=== PATIENT | male | born 1985 | race Caucasian/White ===

== ENCOUNTER 2018-12-18 11:32 | Observation (INO) | payer BC ==
[2018-12-18] MEDS ORDERED: HYDROMORPHONE HCL 1 MG/ML INJ IV PRN (11:55)
[2018-12-18] MEDS ORDERED: LOPERAMIDE HCL 2 MG CAPSULE PO PRN (12:00)
[2018-12-18] MEDS ORDERED: NACHLORIDE 0.45% 1,000 ML IV SCH (12:00)
[2018-12-18] MEDS ORDERED: ONDANSETRON 4 MG (ODT) TAB PO PRN (12:00)
[2018-12-18] MEDS ORDERED: ONDANSETRON 4 MG/2 ML VIAL IV PRN (12:00)
[2018-12-18] MEDS ORDERED: DIPHENHYDRAMINE 25 MG TAB/CAP PO PRN (12:00)
[2018-12-18] MEDS ORDERED: ACETAMINOPHEN 325 MG TABLET PO PRN (12:00)
[2018-12-18] MEDS ORDERED: CEFTRIAXONE/SWI 1gm 1 GM/10 ML SYR IV SCH (12:00)
[2018-12-18] MEDS ORDERED: POLYETHYL GLY 3350 17 GM/DOSE PO PRN (12:00)
[2018-12-18] MEDS: PANTOPRAZOLE 40 MG INJ IV SCH (12:21)
[2018-12-18] MEDS: SODIUM CHLORIDE 0.9% 10ML INJ IV SCH (12:22)
[2018-12-18 12:25] VITALS: BMI 29.3
[2018-12-18 12:48] LABS: Absolute Lymphocytes (CBC) 1.2 K/uL (0.7-4.9); Basophils % 1.2 % (0-1.3); Hematocrit 46.5 % (39.6-49.0); Lymphocytes % 35.6 % (15.3-44.8); RBC Red Blood Cell Count 5.35 M/uL (4.33-5.43)
[2018-12-18 12:52] LABS: Protime INR 1.05
[2018-12-18 13:27] LABS: ALT/SGPT 45 U/L (12-78); AST/SGOT 17 U/L (15-37); Albumin 3.9 g/dL (3.4-5.0); Alkaline Phosphatase 52 U/L (45-117); Amylase Level 57 U/L (25-115); BUN Blood Urea Nitrogen 8 mg/dL (7-18); Bicarbonate 28 mmol/L (21-32); Bilirubin Direct 0.2 mg/dL (0-0.2); Bilirubin Total 0.9 mg/dL (0.2-1.0); Glucose Level 81 mg/dL (74-106); Lipase 65 U/L (73-393); Magnesium 2.4 mg/dL (1.8-2.4); Potassium 4.3 mmol/L (3.5-5.1); Protein, Total 7.1 g/dL (6.4-8.2); Sodium Level 144 mmol/L (136-145)
--- NOTE | 2018-12-18 14:34 | RAD REPORT ---
EXAM DESCRIPTION: Trang Sanchez (2 Views)12/18/2018 2:27 pm CLINICAL HISTORY: Abdominal pain COMPARISON: None FINDINGS: The lungs appear clear of acute infiltrate. The heart is normal size IMPRESSION: No acute abnormalities displayed
[2018-12-18 14:41] LABS: Urine Appearance CLEAR; Urine Bilirubin NEGATIVE (NEG); Urine Blood NEGATIVE (NEG); Urine Color YELLOW; Urine Glucose NEGATIVE (NEG); Urine Protein NEGATIVE (NEG); Urine Urobilinogen 0.2 mg/dL (0.2-1.0)
--- NOTE | 2018-12-18 14:41 | RAD REPORT ---
EXAM DESCRIPTION: CT - Abdomen Pelvis W Contrast - 12/18/2018 2:27 pm CLINICAL HISTORY: Abdominal pain. COMPARISON: None. TECHNIQUE: Computed axial tomography of the abdomen and pelvis was obtained. 100 cc Isovue-300 is ad ministered intravenously. Oral contrast was given. All CT scans are performed using dose optimization technique as appropriate and may include automated exposure control or mA/KV adjustment according to patient size. FINDINGS: The liver, spleen, pancreas, adrenals and kidneys appear unremarkable. The appendix is normal caliber. There is no evidence of diverticulitis A ventral hernia with a neck of 12 millimeters is present above the level of the umbilicus. There is mild stranding within the herniated fat. IMPRESSION: ventral hernia with a neck of 12 millimeters is present above the level of the umbilicus . There is mild stranding within the herniated fat. This may indicate inflammation.
[2018-12-18 14:51] LABS: Urine Microscopic Reflex NO UMIC
[2018-12-18] MEDS ORDERED: CEFAZOLIN/NS 1gm 1 GM/50 ML BAG IVPB SCH (19:00)
[2018-12-18] MEDS: NACHLORIDE 0.45% 1,000 ML IV SCH (19:00)
[2018-12-19 05:41] LABS: Absolute Lymphocytes (CBC) 2.3 K/uL (0.7-4.9); Basophils % 0.9 % (0-1.3); Hematocrit 43.9 % (39.6-49.0); Lymphocytes % 43.1 % (15.3-44.8); MPV 8.9 fL (7.6-11.3); RBC Red Blood Cell Count 5.07 M/uL (4.33-5.43)
[2018-12-19 05:59] LABS: Magnesium 2.4 mg/dL (1.8-2.4); Potassium 4.2 mmol/L (3.5-5.1)
[2018-12-19] MEDS: NACHLORIDE 0.45% 1,000 ML IV SCH ×2 (06:13→08:20)
[2018-12-19] MEDS ORDERED: CEFAZOLIN/SWI 1gm 1 GM/10 ML SYR ONE (07:07)
[2018-12-19] MEDS ORDERED: Ringers Lactate 1,000 ML IV ONE (07:23)
[2018-12-19] MEDS ORDERED: PROPOFOL 200 MG/20 ML VIAL IV ONE (07:54)
[2018-12-19] MEDS ORDERED: FENTANYL CITR 100 MCG/2 ML ONE (07:55)
[2018-12-19] MEDS ORDERED: ROCURONIUM 50 MG/5 ML VIAL IV ONE (07:55)
--- NOTE | 2018-12-19 08:11 | PREOPCON ---
Date of Consultation: 12/19/2018 Chief Complaint: Abdominal pain. History Of Present Illness: Patient is a 33-year-old gentleman who has had this mass in the epigastr ium above the umbilicus for the last 6 months, it has been bothering him off and on, however, yesterd ay it became severe, he went to Dr. Juan's office. He was admitted and a CAT scan was done, and he was found to have an incarcerated ventral hernia and he was consulted. He is awake, alert, complaini ng of pain above the belly button. No nausea or vomiting. No diarrhea or constipation. No blood in his stool. No dysuria or hematuria. No sore throat, runny nose, cough, headaches, or dizziness. N o chest pain. Review of Systems: Otherwise unremarkable. Past Medical History: Negative. Past Surgical History: Lymph node excision from the left neck. Allergies: NONE. Social History: He denies smoking. Drinks occasionally. Family History: CHF. Physical Examination: Vital Signs: Stable afebrile. General: Awake, alert, and oriented x3. Head and Neck: Cranial nerves 2 through 12 are grossly within normal limits. No neck masses. No JV D. Throat clear. Neck is supple. Chest: Clear. Heart: S1 and S2. Abdomen: Soft, nondistended. Positive bowel sounds. Tenderness above the umbilicus with the mass a ssociated approximately 2 x 3 cm, tender. Extremities: Adequately perfused. Nontender. Neuro: Nonfocal. Diagnostic Data: CT of the abdomen and pelvis shows a 12 mm neck above the umbilicus with inflamed f at in the sac. Laboratory Data: Reviewed. Essentially within normal limits. Assessment: Incarcerated ventral hernia. Plan: Repair. Patient understands the risks, benefits, and alternatives and he agrees to the proced ure. We will utilize mesh. /MODL Voice ID: [id number] Report ID: [id number]
[2018-12-19] MEDS ORDERED: KETOROLAC 30 MG/ML INJ ONE (08:13)
[2018-12-19] MEDS ORDERED: ONDANSETRON 4 MG/2 ML VIAL ONE (08:13)
[2018-12-19] MEDS ORDERED: dexAMETHasone 10 MG/ML VIAL ONE (08:13)
[2018-12-19] MEDS ORDERED: NEOSTIGMINE 1 MG/ML -10 ML VIAL ONE (08:19)
[2018-12-19] MEDS ORDERED: GLYCOPYRROLATE 0.2 MG/ML SYR ONE ×2 (08:19→08:29)
--- NOTE | 2018-12-19 08:32 | P.OP ---
Preoperative diagnosis: Incarcerated Ventral Hernia Postoperative diagnosis: same Primary procedure: Repair Incarcerated Ventral Hernia Anesthesia: General Estimated blood loss: min Specimen: Hernia sac and contents Findings: as above Complications: None Transferred to: Recovery Room Condition: Good
[2018-12-19] MEDS ORDERED: CODEINE 30MG/APAP 300MG TAB PO PRN (08:42)
[2018-12-19] MEDS: HYDROMORPHONE HCL 2 MG/ML inj ONE ×4 (08:50→09:05)
[2018-12-19 09:07] VITALS: BP 110/72; TEMP 97.5; O2SAT 97
--- NOTE | 2018-12-19 09:10 | EKG ---
Test Date: 2018-12-18 Test Time: 13:53:15 [place]: ANA MEASUREMENT RESULTS: Intervals: Rate: 57 FL: 180 QRSD: 92 QT: 404 QTc: 393 [place]: P: 45 FL: 180 QRS: 39 T: 34 INTERPRETIVE STATEMENTS: Sinus bradycardia Otherwise normal ECG No previous ECG available for comparison Electronically Signed On 12-19-18 09:08:07 CDT by Justyn Maguire
[2018-12-19] MEDS: PANTOPRAZOLE 40 MG INJ IV SCH (09:53)
[2018-12-19] MEDS: SODIUM CHLORIDE 0.9% 10ML INJ IV SCH (09:54)
--- NOTE | 2018-12-19 10:11 | OP ---
Date of Procedure: 12/19/2018 Surgeon: Renny Gottlieb MD Preoperative Diagnosis: Incarcerated ventral hernia. Postoperative Diagnosis: Incarcerated ventral hernia. Procedure: Repair of incarcerated ventral hernia. Estimated Blood Loss: Minimal. Specimen: Hernia sac and contents. Findings: As above. Anesthesia: General. Complications: None. Disposition: Patient tolerated the procedure in stable condition and taken to recovery in good gener al condition. Procedure In Detail: The patient was brought to the OR and placed in supine position. General anest hesia was begun. Patient was prepped and draped in usual sterile fashion. Marcaine 0.5% was infiltr ated locally for postop pain control. Then 15 blade was used to make a 4 cm incision above the umbil icus approximately an inch above it. Subcutaneous tissue was divided. Hernia sac and contents ident ified, excised. Approximately a 2 cm defect remained. A Ventralex mesh placed in the defect and the n a #1 PDS [id number] suture was used to close the fascial defect. Wound irrigated. Bleeding c ontrolled with cautery. Then 3-0 chromic was used to approximate subcutaneous tissue and loni use d to close skin. Sterile dressing was applied. The patient was awakened and taken to recovery in good general condition. /MODL Voice ID: [id number] Report ID: [id number]
--- NOTE | 2018-12-19 10:43 | P.DS ---
Admission Date: 12/18/18 Discharge Date: 12/19/18 Disposition: ROUTINE DISCHARGE Discharge Condition: GOOD Hospital Course: [facility]PC[facility] IS DOING GREAT SP SURGERY. HE IS STABLE TO GO HOME. INCARCERATED ABDOMEN WALL HERNIA WAS REPAIRED BY DR. GOTTLIEB. Vital Signs/Physical Exam: Temp Pulse Resp BP Pulse Ox 97.5 F 58 16 110/72 98 12/19/18 09:06 12/19/18 09:06 12/19/18 09:06 12/19/18 09:06 12/19/18 04:00 General: Alert, In no apparent distress HEENT: Atraumatic, PERRLA, EOMI Neck: Supple, JVD not distended Respiratory: Clear to auscultation bilaterally, Normal air movement Cardiovascular: Regular rate/rhythm, Normal S1 S2 Gastrointestinal: Normal bowel sounds, Tenderness (POST OP.) Musculoskeletal: No tenderness Integumentary: No rashes Neurological: Normal speech, Normal tone, Normal affect Lymphatics: No axilla or inguinal lymphadenopathy Laboratory Data at Discharge: WBC 5.3 K/uL (4.3-10.9) D 12/19/18 05:07 Hgb 14.6 g/dL (13.6-17.9) 12/19/18 05:07 Hct 43.9 % (39.6-49.0) 12/19/18 05:07 Plt Count 238 K/uL (152-406) 12/19/18 05:07 PT 12.4 SECONDS (9.5-12.5) 12/18/18 12:18 INR 1.05 12/18/18 12:18 APTT 30.6 SECONDS (24.3-36.9) 12/18/18 12:18 Sodium 144 mmol/L (136-145) 12/19/18 05:07 Potassium 4.2 mmol/L (3.5-5.1) 12/19/18 05:07 BUN 9 mg/dL (7-18) 12/19/18 05:07 Creatinine 1.04 mg/dL (0.55-1.3) 12/19/18 05:07 Glucose 82 mg/dL (74-106) 12/19/18 05:07 Phosphorus 3.0 mg/dL (2.5-4.9) 12/18/18 12:18 Magnesium 2.4 mg/dL (1.8-2.4) 12/19/18 05:07 Total Bilirubin 0.9 mg/dL (0.2-1.0) 12/18/18 12:18 AST 17 U/L (15-37) 12/18/18 12:18 ALT 45 U/L (12-78) 12/18/18 12:18 Alkaline Phosphatase 52 U/L (45-117) 12/18/18 12:18 Amylase 57 U/L (25-115) 12/18/18 12:18 Lipase 65 U/L (73-393) L 12/18/18 12:18 Home Medications: NK [No Home Meds] 12/18/18 Patient Discharge Instructions: May shower on Friday. Keep wound clean and dry. Cover with gauze daily. Abdominal Binder as directed Diet: Regular Activity: No lifting more than 10 lbs Followup: Grant Juan MD [Primary Care Provider] - (call to schedule appointment) Renny Gottlieb MD [ACTIVE - CAN ADMIT] - 1-2 Weeks (call to schedule appointment)
== END 2018-12-19 12:50 | disposition home or self-care (01) ==
LOC: 4TH 11:35
PROVIDERS: ADMIT Internal Medicine; ATTEND Internal Medicine
PROC: 0WUF0JZ Supplement Abdominal Wall with Synthetic Substitute, Open Approach (ICD-10-PCS; principal; 2018-12-19 08:00)
DX: K43.6 Other and unspecified ventral hernia with obstruction, without gangrene (principal)
CPT/HCPCS: 49561; 49568; 93005; 87088; 85025 ×2; 87086; 80048 ×2; 36415 ×2; 82150; 83735 ×2; 84100; 85610; 80076; 88302; 85730; 84443; 81003; 82607; 83690; 82306; 74177; 71046; Q9967; J2704; J2710; C9113 ×2; J1170; J3010; J1100; J0690; J0696; J2405 ×2; G0378 ×2